=== PATIENT | female | born 1995 | race African-American/Black ===

== ENCOUNTER 2017-10-22 06:59 | Emergency (ER) | payer OTHER ==
[~2017-10-22] VITALS: Ht 152.4 cm; Wt 63.5 kg
[~2017-10-22 06:59] MED LIST: DOXYCYCLINE 10100 MG PO; FLOMAX0.4 MG PO; FLONASE 0.05%50 MCG NASAL; HYCET 7.5 MG-3473 ML PO; KEFLEX500 MG PO; NAPROSYN500 MG PO; NOHOMEMEDICATIONS; PERIDEX 0.12%473 M1 SSP; SUDAFED 12 HR120 MG PO; ZOFRAN ODT4 MG PO
[2017-10-22 07:04] VITALS: BP 113/72
[2017-10-22 07:24] LABS: HEMATOCRIT 36.8 % (37.0-47.0); HEMOGLOBIN 12.2 gm/dL (12.0-15.0); MCH 24.6 pg (26.0-34.0); MCHC 33.1 g/dL (28.0-37.0); MCV 74.2 fL (80.0-100.0); RBC 4.95 mil/uL (4.20-5.00)
[2017-10-22 07:32] LABS: CALCIUM 8.9 mg/dL (8.5-10.1); CREATININE 0.7 mg/dL (0.6-1.0); POTASSIUM 3.3 mmol/L (3.5-5.1)
[2017-10-22 07:38] LABS: ALBUMIN 3.7 g/dL (3.4-5.0); TOTAL BILIRUBIN 0.4 mg/dL (<0.1-1.0); TOTAL PROTEIN 7.5 g/dL (6.4-8.2)
[2017-10-22] MEDS ORDERED: PROMS25 WY RECTAL (07:49)
[2017-10-22 08:07] LABS: URINE BILIRUBIN NEGATIVE (Negative); URINE BLOOD NEGATIVE (Negative); URINE CLARITY CLEAR; URINE COLOR YELLOW; URINE GLUCOSE-RANDOM* NEGATIVE (Negative); URINE KETONES 3+ (Negative); URINE NITRITE-REFLEX NEGATIVE (Negative); URINE PROTEIN (DIPSTICK) TRACE (Negative); URINE SPECIFIC GRAVITY >= 1.030 (1.005-1.035); URINE UROBILINOGEN 0.2 E.U./dl (0.2-1.0)
[2017-10-22 08:16] LABS: URINE LEUKOCYTES-REFLEX 1+ (Negative)
[2017-10-22 08:17] LABS: URINE REDUCING SUBSTANCE NEGATIVE
[2017-10-22 08:23] LABS: CASTS None Seen /LPF (None Seen); MUCUS >6 Heavy strn/LPF (None Seen); SQUAMOUS >10 Many /LPF (0-3)
[2017-10-22 08:24] LABS: CRYSTALS None Seen /LPF (None Seen); URINE RBC None Seen /HPF (0-2); URINE WBC-REFLEX 0-5 Rare /HPF (0-5)
[2017-10-22 08:49] LABS: URINE BILIRUBIN NEGATIVE (Negative); URINE BLOOD NEGATIVE (Negative); URINE CLARITY CLEAR; URINE COLOR YELLOW; URINE GLUCOSE-RANDOM* NEGATIVE (Negative); URINE KETONES 3+ (Negative); URINE NITRITE-REFLEX NEGATIVE (Negative); URINE PROTEIN (DIPSTICK) TRACE (Negative); URINE SPECIFIC GRAVITY >= 1.030 (1.005-1.035); URINE UROBILINOGEN 0.2 E.U./dl (0.2-1.0)
[2017-10-22 08:52] LABS: URINE LEUKOCYTES-REFLEX TRACE (Negative); URINE REDUCING SUBSTANCE NEGATIVE
== END 2017-10-22 09:11 | disposition home or self-care (01) ==
LOC: ER 06:59
PROVIDERS: Emergency Medicine
DX: O21.9 Vomiting of pregnancy, unspecified (principal); Z3A.13 13 weeks gestation of pregnancy

== ENCOUNTER 2019-10-28 22:50 | Emergency (ER) | payer OTHER ==
[~2019-10-28] VITALS: Ht 154.9 cm; Wt 68.0 kg
[~2019-10-28 22:50] MED LIST changes: +BENTYL 10 MG CA10 M1 PO; +KLOR-CON 1010 MEQ PO; +PROMS25 WY RECTAL
[2019-10-28] MEDS ORDERED: MOBIC15 MG PO ×2 (23:45→23:46)
[2019-10-28] MEDS ORDERED: PATADAY2.5 ML OPHTHALMIC ×2 (23:45→23:46)
[2019-10-28 23:56] VITALS: BP 114/89
== END 2019-10-28 23:58 | disposition home or self-care (01) ==
LOC: ER 22:50
DX: H20.9 Unspecified iridocyclitis (principal)

== ENCOUNTER 2020-05-21 21:50 | Emergency (ER) | payer OTHER ==
[~2020-05-21] VITALS: Ht 154.9 cm; Wt 65.3 kg
[~2020-05-21 21:50] MED LIST changes: +MOBIC15 MG PO; +PATADAY2.5 ML OPHTHALMIC
[2020-05-21 23:01] LABS: URINE BILIRUBIN NEGATIVE (Negative); URINE BLOOD NEGATIVE (Negative); URINE CLARITY CLEAR; URINE COLOR YELLOW; URINE GLUCOSE-RANDOM* NEGATIVE (Negative); URINE KETONES NEGATIVE (Negative); URINE LEUKOCYTES-REFLEX TRACE (Negative); URINE NITRITE-REFLEX NEGATIVE (Negative); URINE PROTEIN (DIPSTICK) NEGATIVE (Negative); URINE UROBILINOGEN 0.2 E.U./dl (0.2-1.0)
[2020-05-22 01:49] LABS: ABSOLUTE NEUTROPHILS 6.8 thou/uL (1.4-8.2); HEMATOCRIT 37.9 % (37.0-47.0); HEMOGLOBIN 12.4 gm/dL (12.0-15.0); LYMPHOCYTES 20.1 % (24.0-44.0); MCH 25.3 pg (26.0-34.0); MCHC 32.7 g/dL (28.0-37.0); MCV 77.3 fL (80.0-100.0); MONOCYTES 8.4 % (1.0-8.0); PLATELET COUNT 314 thou/uL (150-400); POLYS 69.5 % (36.0-66.0); RBC 4.91 mil/uL (4.20-5.00); RDW 14.8 % (10.5-14.5); WBC 9.8 thou/uL (4.0-11.0)
[2020-05-22 02:03] LABS: CALCIUM 9.1 mg/dL (8.5-10.1); CREATININE 0.9 mg/dL (0.6-1.0); POTASSIUM 3.7 mmol/L (3.5-5.1)
[2020-05-22 02:11] LABS: ALBUMIN 3.7 g/dL (3.4-5.0); TOTAL BILIRUBIN 0.2 mg/dL (0.2-1.0); TOTAL PROTEIN 7.6 g/dL (6.4-8.2)
[2020-05-22] MEDS ORDERED: IBUPROFEN 600600 M1 PO (04:59)
[2020-05-22] MEDS ORDERED: ZOFRAN ODT4 MG PO (04:59)
[2020-05-22] MEDS ORDERED: NORCO 5-325 TA1 EAC2 PO (04:59)
[2020-05-22 05:15] VITALS: BP 112/70
[2020-05-22] MEDS ORDERED: DOXYCYCLINE 10100 MG PO (17:03)
== END 2020-05-22 05:17 | disposition home or self-care (01) ==
LOC: ER 21:50
PROVIDERS: Emergency Medicine
DX: K52.9 Noninfective gastroenteritis and colitis, unspecified (principal); M54.5 Low back pain

== ENCOUNTER 2021-07-25 20:43 | Emergency (ER) | payer BC, OTHER ==
[~2021-07-25] VITALS: Ht 154.9 cm; Wt 2.3 kg
[~2021-07-25 20:43] MED LIST changes: +IBUPROFEN 600600 M1 PO; +NORCO 5-325 TA1 EAC2 PO
[2021-07-25 21:43] VITALS: BP 132/78
[2021-07-25] MEDS ORDERED: ZOFRAN ODT4 MG PO (22:21)
[2021-07-25 22:25] LABS: URINE BILIRUBIN NEGATIVE (Negative); URINE BLOOD NEGATIVE (Negative); URINE CLARITY CLEAR; URINE COLOR YELLOW; URINE GLUCOSE-RANDOM* NEGATIVE (Negative); URINE KETONES 1+ (Negative); URINE NITRITE-REFLEX NEGATIVE (Negative); URINE PROTEIN (DIPSTICK) NEGATIVE (Negative); URINE SPECIFIC GRAVITY >= 1.030 (1.005-1.035); URINE UROBILINOGEN 0.2 E.U./dl (0.2-1.0)
[2021-07-25 22:27] LABS: URINE LEUKOCYTES-REFLEX 2+ (Negative)
[2021-07-25 22:37] LABS: CASTS None Seen /LPF (None Seen); CRYSTALS None Seen /LPF (None Seen); MUCUS 4-6 Moderate strn/LPF (None Seen); SQUAMOUS 4-10 Moderate /LPF (0-3); URINE RBC 1-2 Rare /HPF (NONE SEEN)
[2021-07-29] MEDS ORDERED: AMOXICILLIN875 MG PO (17:05)
== END 2021-07-25 23:35 | disposition home or self-care (01) ==
LOC: ER 20:43
PROVIDERS: Emergency Medicine
DX: B34.9 Viral infection, unspecified (principal)